=== PATIENT | male | born 1960 | race African-American/Black ===

== ENCOUNTER 2022-08-22 06:26 | Emergency (ER) | payer SELFPAY ==
[~2022-08-22] VITALS: Ht 167.6 cm; Wt 85.0 kg
[2022-08-22 06:30] VITALS: BP 179/118
[2022-08-22] MEDS ORDERED: TOPUD PO (07:50)
[2022-08-22] MEDS ORDERED: ACETAMINOPHEN 325MG TABLET PO ONE (08:00)
== END 2022-08-22 08:28 | disposition home or self-care (01) ==
LOC: ER 06:26
DX: S60.222A Contusion of left hand, initial encounter (principal); I10 Essential (primary) hypertension; Y04.0XXA Assault by unarmed brawl or fight, initial encounter; Y93.89 Activity, other specified; Y92.018 Other place in single-family (private) house as the place of occurrence of the external cause
CPT/HCPCS: 73130; 99283

== ENCOUNTER 2022-10-01 01:04 | Emergency (ER) | payer SELFPAY ==
[~2022-10-01] VITALS: Ht 177.8 cm; Wt 75.0 kg
[~2022-10-01 01:04] MED LIST: TOPUD PO
[2022-10-01] MEDS ORDERED: KETOROLAC 30MG/ML VIAL IV STA (02:07)
[2022-10-01 03:05] LABS: BASOPHILS % 0.4 % (0.0-2.0); EOSINOPHILS % 0.8 % (0.0-5.0); HEMOGLOBIN. 13.1 g/dL (14.0-18.0); LYMPHOCYTES % 15.1 % (20.0-50.0); MEAN CORPUSCULAR HEMOGLOBIN 31.9 pg (28.0-32.0); MEAN CORPUSCULAR VOLUME 90.1 fL (80.0-94.0); MEAN PLATELET VOLUME 8.8 fl (7.4-10.4); NEUTROPHILS % 72.7 % (40.0-76.0); PLATELET 106 x1000/uL (130-400); RED CELL DISTRIBUTION WIDTH 12.9 % (11.6-14.6)
[2022-10-01 03:09] LABS: CHLORIDE 107 mEq/L (98-107)
[2022-10-01] MEDS ORDERED: IBUP-2029 MT (06:00)
[2022-10-01 06:47] VITALS: BP 154/92
== END 2022-10-01 07:15 | disposition home or self-care (01) ==
LOC: ER 01:04
DX: R07.89 Other chest pain (principal); R53.1 Weakness; R42 Dizziness and giddiness; I10 Essential (primary) hypertension
CPT/HCPCS: 36415; 71045; 80053; 84484; 85025; 93005; 96374; 99285; J1885